=== PATIENT | male | born 1945 | race Asian ===

== ENCOUNTER 2018-05-11 09:08 | Day surgery (SDC) | payer OTHER ==
[2018-05-10 14:56] VITALS: BMI 26.1
[2018-05-11 11:25] VITALS: TEMP 97.6
[2018-05-11 13:53] VITALS: BP 155/93; PULSE 62
--- NOTE | 2018-05-13 12:58 | PATH ---
Surgical Pathology Report Patient Name: TOBIN HOLLAND [facility]. Rec. #: [id number] /Age/Gender: 1945 (Age: 72) / M Account: [id number] Location: [facility] Taken: 05/11/2018 Received: 05/11/2018 Reported: 05/13/2018 Physicians: Javier Stark M.D. Specimen(s) Received A: BX 2ND PORTION DUODENUM AND BULB B: BX ANTRUM C: BX ESOPHAGAL STRICTURE D: BX MID ESOPHAGUS Clinical History Dysphagia Postoperative diagnosis: Reflux esophagitis, Schatzki's ring Final Diagnosis A. SECOND PORTION DUODENUM AND BULB, BIOPSY: DUODENUM MUCOSA WITH NO DIAGNOSTIC ABNORMALITIES. B. ANTRUM, BIOPSY: GASTRIC MUCOSA WITH CHRONIC GASTRITIS. IMMUNOSTAIN IS NEGATIVE FOR H. PYLORI ORGANISMS. NEGATIVE FOR INTESTINAL METAPLASIA. C. ESOPHAGEAL STRICTURE, BIOPSY: GASTROESOPHAGEAL JUNCTIONAL MUCOSA SHOWING REFLUX ESOPHAGITIS, ULCERATION, ACUTE FIBRINOUS AND INFLAMMATORY EXUDATE, AND GRANULATION TISSUE FORMATION. POSITIVE FOR INTESTINAL METAPLASIA (FOCAL). PAS STAIN FAILED TO REVEAL FUNGAL HYPHAE. D. MID ESOPHAGUS, BIOPSY: ESOPHAGEAL MUCOSA WITH REFLUX ESOPHAGITIS. Electronically Signed Triston Vargas M.D. Gross Description A. Received in formalin, labeled "biopsy duodenum second portion and the bulb" are 3 newby, irregular portions of soft tissue ranging from 0.3-0.4 cm. in greatest dimension. The specimens are submitted in toto in one cassette. B. Received in formalin, labeled "biopsy antrum" are 4 newby, irregular portions of soft tissue ranging from 0.2-0.5 cm. in greatest dimension. The specimens are submitted in toto in one cassette. C. Received in formalin, labeled "biopsy esophageal stricture" are 6 newby, irregular portions of soft tissue ranging from 0.2-0.5 cm. in greatest dimension. The specimens are submitted in toto in one cassette. D. Received in formalin, labeled "biopsy midesophagus" are 2 newby, irregular portions of soft tissue measuring 0.3 and 0.5 cm. in greatest dimension. The specimens are submitted in toto in one cassette. DL/05/11/2018 saudi/05/11/2018
== END 2018-05-11 12:15 | disposition home or self-care (01) ==
LOC: JASU-ENDO 09:08
PROVIDERS: ATTEND Internal Medicine Gastroenterology
PROC: 0DB68ZX Excision of Stomach, Via Natural or Artificial Opening Endoscopic, Diagnostic (ICD-10-PCS; 2018-05-11)
PROC: 0DB28ZX Excision of Middle Esophagus, Via Natural or Artificial Opening Endoscopic, Diagnostic (ICD-10-PCS; 2018-05-11)
PROC: 0DB38ZX Excision of Lower Esophagus, Via Natural or Artificial Opening Endoscopic, Diagnostic (ICD-10-PCS; 2018-05-11)
PROC: 0DB98ZX Excision of Duodenum, Via Natural or Artificial Opening Endoscopic, Diagnostic (ICD-10-PCS; principal; 2018-05-11 10:00)
DX: K21.0 Gastro-esophageal reflux disease with esophagitis (principal); K44.9 Diaphragmatic hernia without obstruction or gangrene; K22.2 Esophageal obstruction
CPT/HCPCS: 88305-TC; 88342-TC